=== PATIENT | male | born 1940 | race Caucasian/White ===

== ENCOUNTER 2016-06-14 20:07 | Emergency (ER) | payer MEDICARE, OTHER ==
--- NOTE | ~2016-06-14 | CR181 ---
[facility] A Service [facility] RADIOLOGY TEXT RESULTS PATIENT: SUZIE MCCURDY LOCATION: [facility] : 42 UNIT #: [id number] AGE: [address]: Elio Astorga MD SEX: M ORDER DR: [id number] [address] [place], [place] [address] [id number] MR#: [id number] #: [id number] NAME: SUZIE MCCURDY : 1940 SEX: M STUDY DATE/TIME: 06/14/2016 20:41 UNIT: [facility] ROOM: STUDY DESCRIPTION: CR Lumbar Spine 2 or 3 Views Attending Physician: Elio Astorga M.D. Ordering Physician: Elio Astorga M.D. Primary Care Physician: No Primary Care Physician MEDICAL IMAGING REPORT This report is preliminary unless electronic signature is present EXAM Lumbar spine, 06/14/16 HISTORY Trauma. Fall. Mid to low back pain. FINDINGS Three views of the lumbar spine without comparison. There is no acute fracture or subluxation. Paravertebral body height and alignment is within normal limits. There are some degenerative changes consistent with disk space narrowing and osteophyte formation. There is also some facet arthropathy. This is most pronounced from L3-L4 through L5-S1. Sacroiliac joints are normal. IMPRESSION Degenerative changes of the lumbar spine. No acute findings. Dictated by... Ramirez Ford M.D. THIS IS AN ELECTRONICALLY VERIFIED REPORT Ramirez Ford M.D. at 06/15/2016 3:25 PM CIARA/garland TD: 06/14/2016 23:38 JOB #: [id number] MEDICAL IMAGING REPORT [facility] A Service [facility] RADIOLOGY TEXT RESULTS PATIENT: SUZIE MCCURDY LOCATION: [facility] : 42 UNIT #: [id number] AGE: [address]: Elio Astorga MD SEX: M ORDER DR: Page 1 of 1 COPY
[~2016-06-14 20:07] MED LIST: BAYER ASPIRIN325 M1 PO; CRESTOR PO; LANTUS100 UNITS/ SUBQ; LISINOPRIL20 MG PO; METFORMIN HCL500 M1 PO; NOVOLOG100 UNITS/ SUBQ; SYNTHROID0.15 MG PO; VERAPAMIL ER240 MG PO
== END 2016-06-14 21:30 | disposition home or self-care (01) ==
LOC: CED 20:07
DX: S39.012A Strain of muscle, fascia and tendon of lower back, initial encounter (principal); E11.9 Type 2 diabetes mellitus without complications; E78.5 Hyperlipidemia, unspecified; I10 Essential (primary) hypertension; Z88.5 Allergy status to narcotic agent; Z91.041 Radiographic dye allergy status; X58.XXXA Exposure to other specified factors, initial encounter; Y92.89 Other specified places as the place of occurrence of the external cause
CPT/HCPCS: 72100; 82947; 99283